=== PATIENT | male | born 1985 | race Caucasian/White ===

== ENCOUNTER 2017-07-23 06:09 | Emergency (ER) | payer MEDICAID ==
[~2017-07-23] VITALS: Ht 182.9 cm; Wt 108.1 kg
[~2017-07-23 06:09] MED LIST: AZIT250T PO; DICY10CA88 PO; METH500T PO; NORCO10T PO
[2017-07-23] MEDS ORDERED: CEPH500C5 PO (06:55)
[2017-07-23] MEDS ORDERED: SULF1TAB49 PO (06:55)
[2017-07-23 07:14] VITALS: BP 147/104
== END 2017-07-23 07:20 | disposition home or self-care (01) ==
LOC: ER 06:10
DX: L03.114 Cellulitis of left upper limb (principal); F12.10 Cannabis abuse, uncomplicated; F15.10 Other stimulant abuse, uncomplicated; Z88.1 Allergy status to other antibiotic agents; Z90.49 Acquired absence of other specified parts of digestive tract
CPT/HCPCS: 99283

== ENCOUNTER 2017-09-19 04:32 | Emergency (ER) | payer MEDICAID ==
[~2017-09-19] VITALS: Ht 182.9 cm; Wt 95.9 kg
[~2017-09-19 04:32] MED LIST changes: +CEPH500C5 PO
[2017-09-19 04:38] VITALS: BP 157/119
[2017-09-19] MEDS ORDERED: HYDROcodone/acetaminophen 10/325mg tab PO ONE (04:50)
[2017-09-19] MEDS ORDERED: HYDR-3965 PO (05:38)
[2017-09-19] MEDS ORDERED: IBUP-1984 PO (05:38)
== END 2017-09-19 05:49 | disposition home or self-care (01) ==
LOC: ER 04:33
DX: S20.211A Contusion of right front wall of thorax, initial encounter (principal); I10 Essential (primary) hypertension; F15.10 Other stimulant abuse, uncomplicated; F12.10 Cannabis abuse, uncomplicated; Z90.49 Acquired absence of other specified parts of digestive tract; Z88.1 Allergy status to other antibiotic agents; W10.8XXA Fall (on) (from) other stairs and steps, initial encounter; Y93.01 Activity, walking, marching and hiking; Y92.89 Other specified places as the place of occurrence of the external cause; Y99.8 Other external cause status
CPT/HCPCS: 71101; 99284

== ENCOUNTER 2018-05-07 02:48 | Emergency (ER) | payer MEDICAID ==
[~2018-05-07] VITALS: Ht 182.9 cm; Wt 77.0 kg
[2018-05-07 02:51] VITALS: BP 148/107
[2018-05-07] MEDS ORDERED: CLIN300C85 PO (03:07)
[2018-05-07] MEDS ORDERED: clindamycin phosphate 150mg/ml inj. IM ONE (03:10)
[2018-05-07] MEDS ORDERED: traMADol 50MG tablet PO ONE (03:10)
== END 2018-05-07 03:17 | disposition home or self-care (01) ==
LOC: ER 02:49
DX: L03.113 Cellulitis of right upper limb (principal); F15.90 Other stimulant use, unspecified, uncomplicated; I10 Essential (primary) hypertension; F12.90 Cannabis use, unspecified, uncomplicated; Z90.49 Acquired absence of other specified parts of digestive tract; Z60.2 Problems related to living alone; Z88.1 Allergy status to other antibiotic agents; Z79.2 Long term (current) use of antibiotics; Z79.899 Other long term (current) drug therapy
CPT/HCPCS: 96372; 99284; J3490

== ENCOUNTER 2018-06-13 14:46 | Emergency (ER) | payer MEDICAID ==
[~2018-06-13] VITALS: Ht 182.9 cm; Wt 100.0 kg
[~2018-06-13 14:46] MED LIST changes: +CLIN300C85 PO
--- NOTE | 2018-06-13 15:34 | NUR ---
patient states that he has not used IV Meth since his admission to [facility] for [facility]
--- NOTE | 2018-06-13 15:35 | NUR ---
left medial lower leg abcess: patient states that he has ahdthe reddened area since before he went to [facility]
--- NOTE | 2018-06-13 15:36 | NUR ---
dr Sarkar in room using ultrasound to assess abcess on left lower leg
--- NOTE | 2018-06-13 15:39 | NUR ---
per dr swan 5 x5 mm fluid collection on ultrasound
[2018-06-13] MEDS ORDERED: SULF1TAB49 PO (15:40)
[2018-06-13] MEDS ORDERED: sulfamethoxazole/trimethoprim DS (800/160mg) tablet PO ONE (15:45)
[2018-06-13 15:50] VITALS: BP 128/80
== END 2018-06-13 15:54 | disposition home or self-care (01) ==
LOC: ER 14:46
DX: L03.116 Cellulitis of left lower limb (principal); I10 Essential (primary) hypertension; F12.90 Cannabis use, unspecified, uncomplicated; F15.90 Other stimulant use, unspecified, uncomplicated; Z90.49 Acquired absence of other specified parts of digestive tract; Z60.2 Problems related to living alone; Z88.1 Allergy status to other antibiotic agents; Z79.2 Long term (current) use of antibiotics; Z79.899 Other long term (current) drug therapy
CPT/HCPCS: 99283

== ENCOUNTER 2018-08-14 20:07 | Inpatient (IN) | payer MEDICAID ==
[~2018-08-14] VITALS: Ht 182.9 cm; Wt 100.0 kg
[~2018-08-14 20:07] MED LIST changes: -CEPH500C5 PO; +CLIN-96 PO; -CLIN300C85 PO
[2018-08-14] MEDS ORDERED: normal saline 1000ml 1,000 ML IV ONE ×2 (20:35)
[2018-08-14] MEDS ORDERED: lisinopril 10 MG tablet PO ONE (21:15)
[2018-08-14] MEDS ORDERED: CefTRIAXone 2gm/D5W 50ml 50 ML IV ONE (21:15)
[2018-08-14] MEDS ORDERED: acetaminophen 325mg tablet PO PRN ×2 (21:15)
[2018-08-14] MEDS ORDERED: magnesium hydroxide 30ml (MOM) UD suspension PO PRN (21:15)
[2018-08-14] MEDS ORDERED: mag hydrox/Alum hydrox/simeth 30ml oral suspension PO PRN (21:15)
[2018-08-14] MEDS ORDERED: vancomycin/NS 1 GM ADD-VANTAGE 250 ML IV ONE (21:15)
[2018-08-14] MEDS ORDERED: HYDROcodone/acetaminophen 5mg/325mg tablet PO PRN (21:15)
[2018-08-14 21:24] LABS: ALANINE AMINOTRANSFERASE 33 U/L (12-78); ALBUMIN 3.5 G/DL (3.4-5.0); ALBUMIN/GLOBULIN RATIO 0.9 (1.1-1.5); ALKALINE PHOSPHATASE 96 IU/L (46-116); ANION GAP 4 (8-16); ASPARTATE AMINO TRANSFERASE 18 U/L (10-37); BILIRUBIN,TOTAL 0.4 MG/DL (0.1-1.0); BLOOD UREA NITROGEN 10 MG/DL (7-18); BUN/CREATININE RATIO 9.2 (5.4-32.0); CHLORIDE 99 MMOL/L (99-107); CREATININE 1.09 MG/DL (0.60-1.10); GLUCOSE 127 MG/DL (70-104); POTASSIUM 3.9 MMOL/L (3.5-5.1); SODIUM 136 MMOL/L (135-145); TOTAL CARBON DIOXIDE 32.6 MMOL/L (24-32); TOTAL PROTEIN 7.4 G/DL (6.4-8.2); eGFR 78 ML/MIN
[2018-08-14] MEDS: normal saline 1000ml 1,000 ML IV SCH ×2 (21:39→23:25)
[2018-08-14] MEDS: HYDROcodone/acetaminophen 10/325mg tab PO PRN ×2 (21:40→23:08)
[2018-08-14 21:42] LABS: PARTIAL THROMBOPLASTIN TIME 30 SECONDS (22-32); PROTHROMBIN TIME 10.3 SECONDS (9.0-12.0)
[2018-08-14 22:23] LABS: BASOPHILS % (AUTO) 0.3 % (0-1); EOSINOPHILS # (AUTO) 0.1 X10'3 (0-0.9); EOSINOPHILS % (AUTO) 0.5 % (0-6); HEMATOCRIT 35.5 % (42.0-52.0); HEMOGLOBIN 12.4 g/dl (14.0-17.9); LYMPHOCYTES # (AUTO) 1.1 X10'3 (1.1-4.8); LYMPHOCYTES % (AUTO) 9.6 % (21-51); MEAN CORPUSCULAR HEMOGLOBIN 28.6 PG (27.0-31.0); MEAN CORPUSCULAR HGB CONC 34.8 g/dL (33.0-36.5); MEAN CORPUSCULAR VOLUME 82.1 FL (78-98); MEAN PLATELET VOLUME 8.9 FL (7.4-10.4); MONOCYTES # (AUTO) 1.2 X10'3 (0-0.9); MONOCYTES % (AUTO) 10.6 % (2-12); PLATELET COUNT 154 X10'3 (140-440); RED BLOOD COUNT 4.33 X10'6 (4.70-6.10); RED CELL DISTRIBUTION WIDTH 13.8 % (11.5-14.5); WHITE BLOOD COUNT 11.4 X10'3 (4.5-11.0)
[2018-08-14 23:05] LABS: CLARITY,URINE CLEAR (Clear); COLOR,URINE YELLOW (Yellow); GLUCOSE, URINE NEGATIVE (Neg); KETONES,URINE TRACE mg/dl (Neg); LEUKOCYTE ESTERASE ,URINE NEGATIVE (Neg); NITRITES, URINE NEGATIVE (Neg); OCCULT BLOOD,URINE NEGATIVE (Neg); PROTEIN,URINE TRACE mg/dl (Neg)
[2018-08-14 23:06] LABS: UA COLLECTION TYPE CLN CATCH MIDSTREAM
[2018-08-14] MEDS: ondansetron/PF 4mg/2ml inj IV PRN (23:07)
--- NOTE | 2018-08-14 23:15 | NUR ---
Received report from OPAL Miranda. Awaiting patient arrival to the unit.
--- NOTE | 2018-08-14 23:20 | NUR ---
Patient arrived to the unit via gurney, placed in room 3018B. Patient is awake and alert on room air, in no apparent distress. Call light and items of frequent use within reach. Will continue to monitor.
[2018-08-14 23:25] VITALS: BP 137/88
[2018-08-14 23:31] LABS: RBC,URINE 0-2 /HPF (0-2); WBC,URINE 0-4 /HPF (0-4)
[2018-08-14 23:32] LABS: BACTERIA,URINE NONE SEEN /HPF (Neg); SQUAMOUS EPITHELIAL CELL,UR FEW /LPF (FEW); TRIPLE PHOSPHATE CRYST 1+ /HPF (NEGATIVE)
[2018-08-15] MEDS ORDERED: pneumococcal 23-VAL P-sac vacc 25 mcg/0.5ml vial IMVAC ONE (00:30)
[2018-08-15 02:00] VITALS: BP 115/66
[2018-08-15 05:31] LABS: BASOPHILS # (AUTO) 0.1 X10'3 (0-0.2); BASOPHILS % (AUTO) 0.5 % (0-1); EOSINOPHILS # (AUTO) 0.1 X10'3 (0-0.9); EOSINOPHILS % (AUTO) 1.1 % (0-6); HEMOGLOBIN 12.2 g/dl (14.0-17.9); LYMPHOCYTES # (AUTO) 1.6 X10'3 (1.1-4.8); LYMPHOCYTES % (AUTO) 14.9 % (21-51); MEAN CORPUSCULAR VOLUME 82.4 FL (78-98); MEAN PLATELET VOLUME 9.2 FL (7.4-10.4); MONOCYTES # (AUTO) 1.3 X10'3 (0-0.9); MONOCYTES % (AUTO) 11.9 % (2-12); NEUTROPHILS # (AUTO) 7.9 X10'3 (1.8-7.7); NEUTROPHILS % (AUTO) 71.6 % (42-75); PLATELET COUNT 170 X10'3 (140-440); RED BLOOD COUNT 4.37 X10'6 (4.70-6.10); RED CELL DISTRIBUTION WIDTH 13.7 % (11.5-14.5)
[2018-08-15] MEDS ORDERED: NO HOME MEDS (05:58)
[2018-08-15 06:05] LABS: ALBUMIN 2.7 G/DL (3.4-5.0); ANION GAP 7 (8-16); BLOOD UREA NITROGEN 9 MG/DL (7-18); BUN/CREATININE RATIO 10.7 (5.4-32.0); CALCIUM 8.7 MG/DL (8.5-10.1); CHLORIDE 106 MMOL/L (99-107); CREATININE 0.84 MG/DL (0.60-1.10); GLUCOSE 105 MG/DL (70-104); POTASSIUM 4.2 MMOL/L (3.5-5.1); SODIUM 141 MMOL/L (135-145); TOTAL CARBON DIOXIDE 27.7 MMOL/L (24-32); eGFR > 90 ML/MIN
--- NOTE | 2018-08-15 06:10 | NUR ---
Problems reprioritized. Patient report given, questions answered & plan of care reviewed with OPAL Pacheco.
[2018-08-15 07:13] VITALS: BP 125/78
[2018-08-15] MEDS ORDERED: vancomycin/NS 1 GM ADD-VANTAGE 250 ML IV SCH (08:00)
[2018-08-15] MEDS ORDERED: vancomycin inj 1,250 MG in normal saline 250ml IV soln 250 ML IV SCH (08:00)
[2018-08-15] MEDS: HYDROcodone/acetaminophen 10/325mg tab PO PRN (08:58)
[2018-08-15] MEDS: ondansetron/PF 4mg/2ml inj IV PRN (08:58)
[2018-08-15] MEDS ORDERED: magnesium Cl slow-release 64mg tablet PO PRN (09:30)
[2018-08-15] MEDS ORDERED: potassium Cl 20 mEq SR tablet PO PRN ×2 (09:30)
[2018-08-15] MEDS ORDERED: magnesium 4gm in 100ml NS 100 ML IV PRN (09:30)
[2018-08-15] MEDS ORDERED: potassium Cl 40MEQ/NS 500ml 500 ML IV PRN ×2 (09:30)
[2018-08-15] MEDS ORDERED: LORazepam 0.5 MG tablet PO PRN (09:50)
[2018-08-15] MEDS ORDERED: CefTRIAXone/D5W-Rocephin 1gm 50 ML IV SCH (21:00)
[2018-08-16] MEDS ORDERED: VANCOMYCIN LEVEL IV ONE (07:30)
== END 2018-08-15 10:48 | disposition left against medical advice (07) | DRG 720 ==
LOC: ER 20:08 → ED HOLD 21:14 → EDBEDREQ 22:57 → CMPBEDREQ 23:35 → PCU 3S 23:36
PROVIDERS: ADMIT Hospitalist; ATTEND Family Medicine
DX: A41.9 Sepsis, unspecified organism (principal); F11.10 Opioid abuse, uncomplicated; F15.10 Other stimulant abuse, uncomplicated; F12.90 Cannabis use, unspecified, uncomplicated; I10 Essential (primary) hypertension; Z60.2 Problems related to living alone; Z53.21 Procedure and treatment not carried out due to patient leaving prior to being seen by health care provider; L03.114 Cellulitis of left upper limb; Z87.442 Personal history of urinary calculi; Z90.49 Acquired absence of other specified parts of digestive tract; Z88.1 Allergy status to other antibiotic agents
CPT/HCPCS: 36415; 80048; 80053; 81001; 83605; 84145; 85025; 85610; 85730; 87040; 87070; 96360; 99285; G0378; J0696; J2405; J3370; J7030

== ENCOUNTER 2019-01-06 02:57 | Emergency (ER) | payer MEDICAID ==
[~2019-01-06] VITALS: Ht 182.9 cm; Wt 100.0 kg
[~2019-01-06 02:57] MED LIST changes: -AZIT250T PO; -CLIN-96 PO; -DICY10CA88 PO; -METH500T PO; +NO HOME MEDS; -NORCO10T PO
[2019-01-06 03:01] VITALS: BP 134/105
[2019-01-06] MEDS ORDERED: SULF1TAB49 PO (03:07)
[2019-01-06] MEDS ORDERED: CEPH500C5 PO (03:07)
[2019-01-06] MEDS ORDERED: LIDOcaine 1% w/epiNEPHrine 1:200,000 30ml vial IM ONE (03:10)
== END 2019-01-06 03:29 | disposition home or self-care (01) ==
LOC: ER 02:57
DX: L02.413 Cutaneous abscess of right upper limb (principal); I10 Essential (primary) hypertension; F12.90 Cannabis use, unspecified, uncomplicated; F15.90 Other stimulant use, unspecified, uncomplicated; Z90.49 Acquired absence of other specified parts of digestive tract; Z60.2 Problems related to living alone; Z88.1 Allergy status to other antibiotic agents; Z79.2 Long term (current) use of antibiotics
CPT/HCPCS: 10060; 99283; 99285

== ENCOUNTER 2019-04-02 10:09 | Emergency (ER) | payer MEDICAID ==
[~2019-04-02] VITALS: Ht 182.9 cm; Wt 90.0 kg
[2019-04-02] MEDS ORDERED: ondansetron/PF 4mg/2ml inj IV ONE (11:10)
[2019-04-02] MEDS ORDERED: normal saline 1000ML IV soln IVB ONE (11:10)
[2019-04-02] MEDS ORDERED: buprenorphine/naloxone 8MG-2MG SUBlingual film SL STA (11:16)
[2019-04-02 11:52] VITALS: BP 127/90
--- NOTE | 2019-04-02 12:03 | NUR ---
PT DOESNT WANT TO TAKE THE SUBOXONE AT THIS TIME. LUCINDA SCHMITZ IN ROOM TO DISCUSS THAT IT WILL BE OK TO TAKE IT NOW EVEN THOUGH HE TOOK DRUGS LAST NIGHT. PT WILL WAIT FOR A WHILE AND OR GO TO THE [facility] FOR F/U TODAY.
[2019-04-02 12:08] LABS: ALANINE AMINOTRANSFERASE 35 U/L (12-78); ALBUMIN 3.9 G/DL (3.4-5.0); ALBUMIN/GLOBULIN RATIO 0.9 (1.1-1.5); ALKALINE PHOSPHATASE 94 IU/L (46-116); ANION GAP 9 (8-16); ASPARTATE AMINO TRANSFERASE 27 U/L (10-37); BILIRUBIN,TOTAL 0.5 MG/DL (0.1-1.0); BLOOD UREA NITROGEN 14 MG/DL (7-18); BUN/CREATININE RATIO 17.1 (5.4-32.0); CALCIUM 9.3 MG/DL (8.5-10.1); CHLORIDE 100 MMOL/L (99-107); CREATININE 0.82 MG/DL (0.60-1.10); GLUCOSE 118 MG/DL (70-104); POTASSIUM 4.9 MMOL/L (3.5-5.1); SODIUM 137 MMOL/L (135-145); TOTAL CARBON DIOXIDE 28.4 MMOL/L (24-32); TOTAL PROTEIN 8.1 G/DL (6.4-8.2); eGFR > 90 ML/MIN
[2019-04-02 12:16] LABS: BASOPHILS % (AUTO) 0.2 % (0-1); EOSINOPHILS # (AUTO) 0.1 X10'3 (0-0.9); EOSINOPHILS % (AUTO) 0.6 % (0-6); HEMATOCRIT 43.8 % (42.0-52.0); LYMPHOCYTES # (AUTO) 1.1 X10'3 (1.1-4.8); LYMPHOCYTES % (AUTO) 10.8 % (21-51); MEAN CORPUSCULAR HEMOGLOBIN 28.1 PG (27.0-31.0); MEAN CORPUSCULAR HGB CONC 34.3 g/dL (33.0-36.5); MEAN PLATELET VOLUME 9.1 FL (7.4-10.4); MONOCYTES # (AUTO) 0.5 X10'3 (0-0.9); MONOCYTES % (AUTO) 5.2 % (2-12); NEUTROPHILS # (AUTO) 8.4 X10'3 (1.8-7.7); NEUTROPHILS % (AUTO) 83.2 % (42-75); PLATELET COUNT 246 X10'3 (140-440); RED BLOOD COUNT 5.35 X10'6 (4.70-6.10); RED CELL DISTRIBUTION WIDTH 13.7 % (11.5-14.5); WHITE BLOOD COUNT 10.1 X10'3 (4.5-11.0)
[2019-04-02] MEDS ORDERED: POLY17PO10 PO (12:51)
== END 2019-04-02 13:14 | disposition home or self-care (01) ==
LOC: ER 10:09
DX: K59.09 Other constipation (principal); F11.23 Opioid dependence with withdrawal; I10 Essential (primary) hypertension; F12.90 Cannabis use, unspecified, uncomplicated; R19.7 Diarrhea, unspecified; F15.90 Other stimulant use, unspecified, uncomplicated; F10.99 Alcohol use, unspecified with unspecified alcohol-induced disorder; Z60.2 Problems related to living alone; Z90.49 Acquired absence of other specified parts of digestive tract; Z88.1 Allergy status to other antibiotic agents; Z79.899 Other long term (current) drug therapy; Y90.9 Presence of alcohol in blood, level not specified
CPT/HCPCS: 36415; 74018; 80053; 85025; 93005; 96361; 96374; 99284; J2405; J7030

== ENCOUNTER 2019-10-19 23:24 | Emergency (ER) | payer MEDICAID ==
[~2019-10-19] VITALS: Ht 182.9 cm; Wt 90.0 kg
[2019-10-19] MEDS ORDERED: normal saline 1000ML IV soln IVB ONE (23:50)
[2019-10-19] MEDS ORDERED: methylnaltrexone br 12mg/0.6ml inj***SubQ only SQ ONE (23:50)
[2019-10-20] MEDS ORDERED: lactulose 20gm/30ml cup PO ONE (00:05)
[2019-10-20] MEDS ORDERED: normal saline 1000ML IV soln IVB ONE (00:05)
[2019-10-20] MEDS ORDERED: magnesium hydroxide 30ml (MOM) UD suspension PO ONE (00:05)
[2019-10-20 00:36] VITALS: BP 140/99
--- NOTE | 2019-10-20 00:37 | NUR ---
pt using restroom then meds will be given
[2019-10-20 01:23] LABS: EOSINOPHILS # (AUTO) 0.2 X10'3 (0-0.9); MONOCYTES # (AUTO) 0.7 X10'3 (0-0.9); NEUTROPHILS # (AUTO) 5.7 X10'3 (1.8-7.7); RED BLOOD COUNT 5.22 X10'6 (4.70-6.10)
[2019-10-20 01:26] LABS: BASOPHILS % (AUTO) 0.5 % (0-1); EOSINOPHILS % (AUTO) 1.9 % (0-6); HEMOGLOBIN 14.6 g/dl (14.0-17.9); LYMPHOCYTES # (AUTO) 1.4 X10'3 (1.1-4.8); LYMPHOCYTES % (AUTO) 17.8 % (21-51); MEAN CORPUSCULAR HGB CONC 34.8 g/dL (33.0-36.5); MEAN CORPUSCULAR VOLUME 80.5 FL (78-98); MEAN PLATELET VOLUME 9.7 FL (7.4-10.4); MONOCYTES % (AUTO) 8.8 % (2-12); PLATELET COUNT 214 X10'3 (140-440); RED CELL DISTRIBUTION WIDTH 14.5 % (11.5-14.5)
[2019-10-20 01:32] LABS: ALANINE AMINOTRANSFERASE 30 U/L (12-78); ALBUMIN 2.5 G/DL (3.4-5.0); ALBUMIN/GLOBULIN RATIO 0.5 (1.1-1.5); ALKALINE PHOSPHATASE 99 IU/L (46-116); ANION GAP 9 (8-16); ASPARTATE AMINO TRANSFERASE 27 U/L (10-37); BILIRUBIN,TOTAL 0.8 MG/DL (0.1-1.0); BLOOD UREA NITROGEN 13 MG/DL (7-18); BUN/CREATININE RATIO 12.3 (5.4-32.0); CALCIUM 8.8 MG/DL (8.5-10.1); CHLORIDE 102 MMOL/L (99-107); CREATININE 1.06 MG/DL (0.60-1.10); GLUCOSE 90 MG/DL (70-104); POTASSIUM 3.5 MMOL/L (3.5-5.1); SODIUM 140 MMOL/L (135-145); TOTAL PROTEIN 7.2 G/DL (6.4-8.2); eGFR 80 ML/MIN
== END 2019-10-20 01:17 | disposition home or self-care (01) ==
LOC: ER 23:25
DX: K59.00 Constipation, unspecified (principal); R00.0 Tachycardia, unspecified; I10 Essential (primary) hypertension; F12.90 Cannabis use, unspecified, uncomplicated; F15.90 Other stimulant use, unspecified, uncomplicated; F11.90 Opioid use, unspecified, uncomplicated; Z90.49 Acquired absence of other specified parts of digestive tract; Z60.2 Problems related to living alone; Z88.0 Allergy status to penicillin
CPT/HCPCS: 80053; 85025; 96372; 99283; J2212; J7030

== ENCOUNTER 2020-09-05 03:34 | Emergency (ER) | payer MEDICAID ==
[~2020-09-05] VITALS: Ht 182.9 cm; Wt 90.0 kg
[2020-09-05] MEDS ORDERED: normal saline 1000ML IV soln IV ONE (04:10)
--- NOTE | 2020-09-05 04:29 | NUR ---
LABS, CT AND FLUIDS DELAYED SECONDARY TO PT BEING A DIFFICULT IV START. AWARE
[2020-09-05] MEDS ORDERED: iohexol 350MG/ML 100ml bottle IV ONE (04:51)
[2020-09-05 05:02] LABS: BASOPHILS # (AUTO) 0.1 X10'3 (0-0.2); BASOPHILS % (AUTO) 0.7 % (0-1); EOSINOPHILS # (AUTO) 0.2 X10'3 (0-0.9); EOSINOPHILS % (AUTO) 2.6 % (0-6); HEMOGLOBIN 13.4 g/dl (14.0-17.9); LYMPHOCYTES # (AUTO) 1.8 X10'3 (1.1-4.8); LYMPHOCYTES % (AUTO) 18.9 % (21-51); MEAN CORPUSCULAR HEMOGLOBIN 27.9 PG (27.0-31.0); MEAN CORPUSCULAR HGB CONC 33.5 g/dL (33.0-36.5); MEAN CORPUSCULAR VOLUME 83.2 FL (78-98); MONOCYTES % (AUTO) 10.6 % (2-12); NEUTROPHILS # (AUTO) 6.5 X10'3 (1.8-7.7); NEUTROPHILS % (AUTO) 67.2 % (42-75); PLATELET COUNT 199 X10'3 (140-440); RED BLOOD COUNT 4.81 X10'6 (4.70-6.10); RED CELL DISTRIBUTION WIDTH 13.7 % (11.5-14.5); WHITE BLOOD COUNT 9.7 X10'3 (4.5-11.0)
[2020-09-05] MEDS ORDERED: ondansetron/PF 4mg/2ml inj IV ONE (05:10)
[2020-09-05] MEDS ORDERED: LIDOcaine 1% W/epiNEPHrine 1:200,000 10ml vial IJ ONE (05:10)
[2020-09-05 05:17] LABS: ALANINE AMINOTRANSFERASE 102 U/L (12-78); ALBUMIN 3.3 G/DL (3.4-5.0); ALBUMIN/GLOBULIN RATIO 0.8 (1.1-1.5); ALKALINE PHOSPHATASE 108 IU/L (46-116); ANION GAP 4 (8-16); ASPARTATE AMINO TRANSFERASE 60 U/L (10-37); BILIRUBIN,TOTAL 0.4 MG/DL (0.1-1.0); BLOOD UREA NITROGEN 15 MG/DL (7-18); BUN/CREATININE RATIO 16.3 (5.4-32.0); CALCIUM 8.6 MG/DL (8.5-10.1); CHLORIDE 103 MMOL/L (99-107); CREATININE 0.92 MG/DL (0.60-1.10); GLUCOSE 105 MG/DL (70-104); SODIUM 140 MMOL/L (135-145); TOTAL CARBON DIOXIDE 33.2 MMOL/L (24-32); TOTAL PROTEIN 7.4 G/DL (6.4-8.2); eGFR > 90 ML/MIN
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
[2020-09-05 05:28] VITALS: BP 130/85
[2020-09-05] MEDS ORDERED: DOXY100C43 PO (05:46)
[2020-09-05] MEDS ORDERED: CEPH-585 PO (05:46)
[2020-09-05] MEDS ORDERED: ketorolac tromethamine 15mg/ml inj. IV ONE (06:05)
== END 2020-09-05 07:02 | disposition home or self-care (01) ==
LOC: ER 03:35
DX: L02.414 Cutaneous abscess of left upper limb (principal); M79.632 Pain in left forearm; I10 Essential (primary) hypertension; F12.90 Cannabis use, unspecified, uncomplicated; F15.90 Other stimulant use, unspecified, uncomplicated; F11.90 Opioid use, unspecified, uncomplicated; Z90.89 Acquired absence of other organs; Z72.89 Other problems related to lifestyle; Z60.2 Problems related to living alone; Z88.1 Allergy status to other antibiotic agents; Z79.2 Long term (current) use of antibiotics
CPT/HCPCS: 10060; 36415; 73206; 76882; 80053; 83605; 83735; 84145; 85025; 87040; 93005; 96361; 96374; 96375; 99285; J1885; J2405; J7030; Q9967

== ENCOUNTER 2023-09-04 15:08 | Emergency (ER) | payer MEDICAID ==
[~2023-09-04] VITALS: Ht 180.3 cm; Wt 101.9 kg
[2023-09-04 15:17] VITALS: BP 142/96; PULSE 109; RESP 16; TEMP 98.1; O2SAT 100
== END 2023-09-04 16:37 | disposition left against medical advice (07) ==
LOC: ER 15:09
DX: K59.00 Constipation, unspecified (principal); R31.9 Hematuria, unspecified; I10 Essential (primary) hypertension; F12.90 Cannabis use, unspecified, uncomplicated; F15.90 Other stimulant use, unspecified, uncomplicated; F11.90 Opioid use, unspecified, uncomplicated; Z88.1 Allergy status to other antibiotic agents
CPT/HCPCS: 99281

== ENCOUNTER 2024-12-13 22:29 | Emergency (ER) | payer MEDICAID ==
[~2024-12-13] VITALS: Ht 180.3 cm; Wt 108.0 kg
--- NOTE | 2024-12-13 23:09 | RADIOLOGY REPORT ---
CHEST RADIOGRAPH Indication: CP, rib trauma Technique: Frontal and lateral view of the chest was obtained Comparison: None FINDINGS: Lines and Tubes: None Lungs: No pulmonary infiltrates or edema. Small calcified granuloma noted in left upper lobe. Pleura: No effusion. No pneumothorax. Cardiomediastinal contours: Unremarkable Bones: Unremarkable IMPRESSION: No evidence of acute disease.
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
[2024-12-13] MEDS ORDERED: IBUP-1986 PO (23:39)
[2024-12-13 23:42] VITALS: BP 150/111; PULSE 97; O2SAT 95
[2024-12-13 23:49] VITALS: RESP 16
[2024-12-13] MEDS: ketorolac trometh 30MG/ML vial 30 MG/ML VIAL IM STA (23:49)
[2024-12-13 23:51] VITALS: TEMP 97.1
== END 2024-12-13 23:53 | disposition home or self-care (01) ==
LOC: ER 22:29
DX: R07.81 Pleurodynia (principal); I10 Essential (primary) hypertension; F12.90 Cannabis use, unspecified, uncomplicated; F15.90 Other stimulant use, unspecified, uncomplicated; F11.90 Opioid use, unspecified, uncomplicated; Z60.2 Problems related to living alone; Z90.49 Acquired absence of other specified parts of digestive tract; Z88.1 Allergy status to other antibiotic agents; Z72.89 Other problems related to lifestyle
CPT/HCPCS: 71046; 96372; 99283; J1885